=== PATIENT | female | born 1950 ===

== ENCOUNTER 2016-10-15 12:36 | Observation (INO) ==
--- NOTE | 2016-10-15 13:23 | Emergency Department Note ---
Kings Frazier Manpreet, am scribing for, and in the presence of, Quirino Cortés MD 13:14. Moo Frazier Phillip K, MD, personally performed the services described in this documentation, ascribed by Dean Ku in my presence, and it is both accurate and complete 323 . Arrival - Arrival Chief Complaint: Neuro ED Nursing Triage Note: PT TRANSFERRED FROM [facility], PT HAS EPISODE LAST NIGHT OF CONFUSION AND EXPRESSIVE APHASIA, ALL SYMPTOMS HAVE RESOLVED, PT HAS NO COMPLAINTS, GCS 15, SPEECH IS CLEAR Mode of Arrival: Stretcher Limitations: No Limitations Source: Patient Time Seen by Provider: 10/15/16 12:58 - History of Present Illness HPI Narrative: Pt is a 66 y/o female, with PMHx of HTN, IDDM, renal failure, who is transferred to the ED from [facility]. Pt states she woke up on the floor in the middle of night but does not recall how she got there. When she woke up this morning, Pt was late to work and called in. Pt said she was unable to produce words coherently but knew what she wanted to say. Pt also c/o numbness and weakness in her right arm since January. Pt goes for dialysis on MWF but did not go today. No other pains/complaints reported to ED. Onset (ago): day(s) Consistency: now resolved Severity: moderate Allergies/Adverse Reactions: Allergies Allergy/AdvReac Type Severity Reaction Status Date / Time ciprofloxacin [From Cipro] Allergy ITCHING Verified 10/15/16 12:55 Iodinated Contrast Media - Allergy HIVES Verified 10/15/16 12:55 Oral and [Iodinated Contrast Media - IV Dye] sulfamethoxazole Allergy Headache Verified 10/15/16 12:55 [From Bactrim] trimethoprim [From Bactrim] Allergy Headache Verified 10/15/16 12:55 vancomycin AdvReac Mild ITCHING Verified 10/15/16 12:55 Home Medications: Home Medications Medication Instructions Recorded Confirmed Type Insulin NPH Hum/Reg Insulin Hm 40 unit SUBCUT DAILY W/BREAKFAST 10/03/14 History [Novolin 70-30 100 Unit/ml Vial] Insulin NPH Hum/Reg Insulin Hm 30 unit SUBCUT DAILY W/SUPPER 07/28/15 04/12/16 History [NovoLIN 70/30] Calcium Acetate [Phoslo] 2,001 mg PO TID W/MEALS 07/29/15 04/12/16 History Vit B Cmplx 3/Folic AC/C/Biot 1 each PO DAILY 02/01/16 04/12/16 History [Nephro-Fady Rx Tablet] amLODIPine [Norvasc] 10 mg PO DAILY 02/01/16 04/12/16 History Review of System - Review of System 12 point system: reviewed and no additional remarkable complaints except as stated - Review of System Constitutional: Absent: chills, diaphoresis, fever Respiratory: Absent: cough, respiratory distress Cardiovascular: Absent: chest pain Gastrointestinal: Absent: abdominal pain, nausea, vomiting Musculoskeletal: Present: other (Weakness in Right arm). Absent: arm pain, back pain Neurological: Present: numbness (In right arm). Absent: headache Medical,Surgical,& Family Hx - Medical History Cardio: History of: Hypertension, PVD Neurology: History of: Peripheral Neuropathy No history of: Parkinson's Disease, Seizures HEENT: History of: Ear Problem (Hearing Loss Rt Ear), Eye Problem, Dental Problems (missing teeth), HEENT Problems (Allergies) Comment Only: Glaucoma (Glasses) Endocrine: History of: Diabetes Mellitus (IDDM) Respiratory: No history of: Respiratory Problems (Flu Vac Current 3720-5764 Season/No Pneum Vac; SINUS DRAINAGE OCCASIONALLY.) Renal: History of: [place] [place] Renal Failure, Renal Problems (Dr. Lowery) Gastrointestinal: History of: GI Problems (CONSTIPATION OCCASIONAL) Musculoskeletal: History of: Amputation (Lt Great Toe 05/2015), Musculoskeletal Problems (Knee pain) Hematology: History of: Anemia Other: No history of: Anesthesia Reactions, Cancer - Surgical History HEENT Surgeries: Surgical HX of: Eye Surgery (Cataract Rt/Lt) Abdominal Surgeries: Surgical HX of: Appendectomy, Cholecystectomy, Splenectomy Patient denies: Colonoscopy Reproductive Surgeries: Surgical HX of;: Section (x3), Hysterectomy ( 1982) Orthopedic Surgeries: Surgical HX of;: Implanted Devices (left upper arm av fistula. previous declot of av fistula; ligation 02/01/16) - Family History Family History: Reports;: Family Diabetes - Social History Smoking Status: Never smoker Exam Vital Signs: Vital Signs Temperature 98.2 F 10/15/16 12:48 Pulse Rate 88 10/15/16 12:48 Respiratory Rate 18 10/15/16 12:48 Blood Pressure 156/65 10/15/16 12:48 O2 Sat by Pulse Oximetry 100 10/15/16 12:48 - General General appearance: alert, in no apparent distress - Head Head exam: Present: atraumatic, normocephalic, normal inspection - Eye Eye exam: Present: normal appearance, PERRL, EOMI - ENT ENT exam: Present: normal exam, normal oropharynx, mucous membranes moist, TM's normal bilaterally - Neck Neck exam: Present: normal inspection, full ROM, trachea midline - Chest Chest inspection: Present: normal inspection, symmetric chest wall rise - Respiratory Respiratory exam: Present: normal lung sounds bilaterally. Absent: accessory muscle use, respiratory distress - Cardiovascular Cardiovascular exam: Present: regular rate, normal rhythm, normal heart sounds - Abdominal Exam Abdominal exam: Present: soft, normal bowel sounds. Absent: distention, tenderness - Extremities Exam Extremities exam: Present: normal inspection, full ROM. Absent: tenderness - Back Exam Back exam: Present: normal inspection, full ROM. Absent: tenderness - Neurological Exam Neurological exam: Present: alert, oriented X3, CN II-XII intact, reflexes normal - Psychiatric Psychiatric exam: Present: normal affect, normal mood - Skin Skin exam: Present: warm, dry, intact, normal color. Absent: pallor Course Course Narrative: Patient discussed with the hospitalist. Results - Labs Lab Results: I have reviewed the patients labs (Patient left and chart reviewed. ) - EKG EKG results: interpreted by MAYRA, sinus rhythm (EKG at [facility] no ST elevation.) - Diagnostic Findings Procedure: CT: report reviewed by me (CT head scan at [facility] showed no acute intracranial abnormality.) Disposition Clinical Impression: Transient cerebral ischemia, End stage renal disease on dialysis, Hypertension Case discussed with: patient Disposition: Still a Patient Condition: Guarded Additional Instructions: Admit to the hospitalist.
--- NOTE | 2016-10-15 14:03 | Hospitalist History & Physical ---
Assessment and Plan (1) End stage renal disease on dialysis Status: Acute Assessment and plan: Patient reports normal hemodialysis on Saturday, we will consult nephrology to evaluate and schedule hemodialysis as previously indicated. Current Visit: Yes (2) Hypertension Status: Acute Assessment and plan: Blood pressure stable at the time of admission, we will manage and monitor. Current Visit: Yes (3) Transient cerebral ischemia Status: Acute Assessment and plan: At the time of admission, no profound neurological deficits are noted. The patient strength mildly impaired to the right upper extremity. Her speech is clear and appropriate, she is able to recite place time and situation appropriately. We will consult neurology to evaluate. We will order MRI of the brain without contrast to rule out cerebrovascular accident. We will also obtain carotid Dopplers, echo, and thyroid panels. Current Visit: Yes Qualifiers: Transient cerebral ischemia type: unspecified Qualified Code(s): G45.9 - Transient cerebral ischemic attack, unspecified History of Present Illness Chief complaint: Altered mental status History of present illness: This is a very pleasant 66-year-old female that presented to the ED at [facility] this afternoon as a lateral transfer from the [facility] for evaluation of altered mental status and expressive aphasia. The patient has a very complex medical history significant for hypertension, insulin-dependent diabetes mellitus, end-stage renal disease, peripheral neuropathy, anemia, and glaucoma. The patient has a surgical history significant for left great toe amputation (2016), appendectomy, cholecystectomy, splenectomy, section, hysterectomy, left upper arm AV fistula placement, and cataract surgery. The patient reported the onset of presenting symptoms on last night. She reports that she woke up around midnight last night and discovered that she was on the floor. She managed to get herself up to get back into bed; however when she woke up this morning she had difficulty speaking. She reports that she normally goes to work at about 8 AM every day, however she overslept this morning. She was woke up by her nephew who informed her of the time and advised her to contact her employer. She reports that she attempted to make the call however she had issues attempting dialing the number. She managed to make a call however was unable to speak when her employer answered the phone. Her coworkers became concerned and they came to her house to check on her. At the time of her coworkers arrival, she was able to speak at that time. They were very concerned and advised her to report to the [facility] for further evaluation. She presented to the [facility] at the request of her coworkers. She was assessed. She reported numbness and weakness in her right arm, however reported that this is chronic in nature since January of last year. Labs were obtained and essentially benign. CT of the head was performed and was essentially negative for any acute intracranial processes. She was subsequently transferred to [facility] for further evaluation. After brief discussion with Dr. Cortés and Dr. Casas, the patient will be admitted to the hospitalist services for continuation of care. We will consult nephrology and neurology to assist in management during the clinical encounter. Home Medications Medication Instructions Recorded Confirmed Type Insulin NPH Hum/Reg Insulin Hm 40 unit SUBCUT DAILY W/BREAKFAST 10/03/14 History [Novolin 70-30 100 Unit/ml Vial] Insulin NPH Hum/Reg Insulin Hm 30 unit SUBCUT DAILY W/SUPPER 07/28/15 04/12/16 History [NovoLIN 70/30] Calcium Acetate [Phoslo] 2,001 mg PO TID W/MEALS 07/29/15 04/12/16 History Vit B Cmplx 3/Folic AC/C/Biot 1 each PO DAILY 02/01/16 04/12/16 History [Nephro-Fady Rx Tablet] amLODIPine [Norvasc] 10 mg PO DAILY 02/01/16 04/12/16 History Allergies Allergy/AdvReac Type Severity Reaction Status Date / Time ciprofloxacin [From Cipro] Allergy ITCHING Verified 10/15/16 12:55 Iodinated Contrast Media - Allergy HIVES Verified 10/15/16 12:55 Oral and [Iodinated Contrast Media - IV Dye] sulfamethoxazole Allergy Headache Verified 10/15/16 12:55 [From Bactrim] trimethoprim [From Bactrim] Allergy Headache Verified 10/15/16 12:55 vancomycin AdvReac Mild ITCHING Verified 10/15/16 12:55 Medical,Surgical,& Family Hx - Medical History Cardio: History of: Hypertension, PVD Neurology: History of: Peripheral Neuropathy No history of: Parkinson's Disease, Seizures HEENT: History of: Ear Problem (Hearing Loss Rt Ear), Eye Problem, Dental Problems (missing teeth), HEENT Problems (Allergies) Comment Only: Glaucoma (Glasses) Endocrine: History of: Diabetes Mellitus (IDDM) Respiratory: No history of: Respiratory Problems (Flu Vac Current 8594-4487 Season/No Pneum Vac; SINUS DRAINAGE OCCASIONALLY.) Renal: History of: Dialysis ([facility], ), Renal Failure, Renal Problems (Dr. Lowery) Gastrointestinal: History of: GI Problems (CONSTIPATION OCCASIONAL) Musculoskeletal: History of: Amputation (Lt Great Toe 05/2015), Musculoskeletal Problems (Knee pain) Hematology: History of: Anemia Other: No history of: Anesthesia Reactions, Cancer - Surgical History HEENT Surgeries: Surgical HX of: Eye Surgery (Cataract Rt/Lt) Abdominal Surgeries: Surgical HX of: Appendectomy, Cholecystectomy, Splenectomy Patient denies: Colonoscopy Reproductive Surgeries: Surgical HX of;: Section (x3), Hysterectomy ( 1982) Orthopedic Surgeries: Surgical HX of;: Implanted Devices (left upper arm av fistula. previous declot of av fistula; ligation 02/01/16) - Family History Family History: Reports;: Family Diabetes - Social History Smoking Status: Never smoker 12 point system: reviewed and no additional remarkable complaints except as stated Exam - Constitutional Vitals: Period Temp Pulse Resp BP Sys/Kramer Pulse Ox Last 24 Hr 98.2 F 88 18 156/65 100 General appearance: normal weight, no acute distress - Head Head exam: Present: normal inspection, normocephalic, atraumatic - Eye Eye exam: Present: EOMI. Absent: conjunctival injection Pupils: Present: RHEA, normal accommodation - ENT ENT exam: Present: normal exam, normal external ear exam, normal oropharynx - Neck Neck exam: Present: normal inspection. Absent: lymphadenopathy, meningismus, tenderness, thyromegaly - Respiratory Respiratory exam: Present: clear to auscultation bilaterally. Absent: rales, rhonchi, stridor, wheezes - Cardiovascular Cardiovascular exam: Present: regular rate and rhythm, other (Martín catheter noted to left chest wall). Absent: carotid bruit, diastolic murmur, gallop, JVD , rubs, systolic murmur - GI/Abdominal GI/Abdominal exam: Present: normal bowel sounds, soft - Extremities Exam Extremities exam: Present: normal inspection, normal capillary refill, full ROM. Absent: edema - Back Exam Back exam: Present: normal inspection - Neurological Exam Neurological exam: Present: alert, oriented X3, CN II-XII intact, other (No profound neurological defects noted) - Psychiatric Psychiatric exam: Present: normal affect, normal mood - Skin Skin exam: Present: normal color, warm, dry
--- NOTE | 2016-10-15 15:22 | Ultrasound Report ---
US carotid duplex BI Indication: Syncope. CAROTID ULTRASOUND Comparison: None. Findings: Grayscale, color Doppler and pulsed Doppler interrogation of the carotid and vertebral arteries performed. Severity of stenosis based on flow velocity measurements using NASCET criteria. Distal right ICA diameter: 3.6 mm Distal left ICA diameter: 4.6 mm Peak systolic flow velocities in centimeters per second are as follows: Right: CCA: 76 cm/s Proximal ICA: 45 Distal ICA: 91 ICA/CCA ratio: 1.2 Left: CCA: 81 cm/s Proximal ICA: 77 Distal ICA: 99 ICA/CCA ratio: 1.2 External carotid arteries: Both are patent with antegrade flow. Vertebral arteries: Both are patent with antegrade flow. Grayscale and color Doppler images: No significant focal plaque deposition identified, with normal color Doppler flow present. Pulse Doppler waveform interrogation: No significant spectral broadening. Impression: No hemodynamically significant stenosis of either ICA. PROCEDURE INTERPRETED AT [facility] DEPARTMENT OF RADIOLOGY Final Report Signed by: Trey Pace M.D.
--- NOTE | 2016-10-15 16:13 | Magnetic Resonance Report ---
Exam: MR head/brain wo con Date: 10/15/2016 1:49 PM Comparison: None Indication: Alteration of consciousness, syncope, recent episode of expressive aphasia and right-sided weakness Technique:[Multiple acquisitions were obtained including sagittal T1, coronal T2, and axial ADC, diffusion, FLAIR, T2, GRE, and T1 scans without contrast only. Scans were obtained on a 1.5 Sanjuana magnet.] Findings: The ventricles are normal in size with no midline displacement. The pituitary has normal appearance and the cerebellar tonsils are normal in their location. No acute infarction is identified on the diffusion scans. No evidence of hemorrhage, mass, or extracerebral collection. Diffuse atrophy and minimal FLAIR/T2 hyperintensities. Enlarged perivascular spaces are noted which are felt to represent a normal variant. Mucosal thickening/fluid in the paranasal sinuses with retention cysts/polyps. The findings are more pronounced in the left maxillary, right ethmoid, and right sphenoid sinuses. No acute findings in the orbits or [place]. Fluid in the left mastoid air cells. Impression: No acute infarction identified. Atrophy and minimal microvascular disease. Moderate sinusitis with retention cysts/polyps. Nonspecific fluid in left mastoid air cells. PROCEDURE INTERPRETED AT [facility] DEPARTMENT OF RADIOLOGY Final Report Signed by: Dr. Anahi Rockwell
--- NOTE | 2016-10-15 17:46 | ECHO Report ---
Tristian Griffith Exam Date: 10/15/2016 14:52 Referring Physician: Technologist: Johanny Golden Age: 66 Ht (in): 62 Wt (lb): 174 Gender: F Exam Location: [facility] Echo Indications: PVD, CVA, HTN, syncope, chronic renal failure, ESRD BP: 187 / 78 HR: 90 Rhythm: Sinus Technical Quality: Fair IMPRESSIONS 1. Slightly limited study secondary to poor acoustic windows. 2. Left ventricle is normal size systolic function with ejection fraction of 60+%. There is mild to moderate concentric left ventricular hypertrophy. 3. The other cardiac chambers are normal size. 4. There is minimal aortic valve sclerosis and no evidence of Doppler abnormalities. 5. Mild sclerosing of the mitral valve with mild regurgitation. MEASUREMENTS (Male / Female) Normal Values 2D ECHO LV Diastolic Diameter PLAX 4.0 cm 4.2 - 5.9 / 3.9 - 5.3 cm LV Systolic Diameter PLAX 1.7 cm LV Fractional Shortening PLAX 57.6 % IVS Diastolic Thickness 1.6 cm 0.6 - 1.0 / 0.6 - 0.9 cm LVPW Diastolic Thickness 1.4 cm 0.6 - 1.0 / 0.6 - 0.9 cm RV Internal Dim ED PLAX 2.9 cm Aortic Root Diameter 2.7 cm LA Systolic Diameter LX 4.3 cm 3.0 - 4.0 / 2.7 - 3.8 cm DOPPLER TR Peak Velocity 148.0 cm/s TR Peak Gradient 8.8 mmHg FINDINGS Left Ventricle Left ventricle is normal size overall normal systolic function ejection fraction 60+%. There is mild to moderate concentric left ventricular hypertrophy. Right Ventricle Normal right ventricular size and systolic function. Right Atrium Normal right atrial size. Left Atrium Normal left atrial size. Mitral Valve Mild mitral valve sclerosis. Mild mitral valve regurgitation. Aortic Valve Mild aortic valve sclerosis. There is no gross evidence for stenosis or insufficiency. Tricuspid Valve Morphologically normal tricuspid valve. Trace tricuspid valve regurgitation. Pulmonic Valve Morphologically normal pulmonic valve. Pericardium No pericardial effusion. Aorta Normal size aortic root and proximal ascending aorta. Trey Medina MD (Electronically Signed) Final Date: 15 October 2016 17:45
--- NOTE | 2016-10-15 20:40 | Nephrology Consult Note ---
History of Present Illness Chief complaint: End-stage renal disease History of present illness: Ms. Griffith is a 66 year old female history of hypertension diabetes end-stage renal disease dialyzes at the [facility] dialysis unit presented with right arm weakness and aphasia was transferred from [facility] for further evaluation. Concern for her having a CVA she had an MRI done today that did not show acute stroke. At present she is sitting up on side of bed, stating with family by phone voices no complaints. No shortness of breath or chest pain. No nausea vomiting. Patient tolerated dialysis this afternoon. Nephrology is been consulted for renal issues. Home Medications Medication Instructions Recorded Confirmed Type Insulin NPH Hum/Reg Insulin Hm 40 unit SUBCUT DAILY W/BREAKFAST 10/03/14 History [Novolin 70-30 100 Unit/ml Vial] Insulin NPH Hum/Reg Insulin Hm 30 unit SUBCUT DAILY W/SUPPER 07/28/15 10/15/16 History [NovoLIN 70/30] Calcium Acetate [Phoslo] 3 capsule PO TID W/MEALS 07/29/15 10/15/16 History Vit B Cmplx 3/Folic AC/C/Biot 1 each PO DAILY 02/01/16 10/15/16 History [Nephro-Fady Rx Tablet] amLODIPine [Norvasc] 10 mg PO DAILY 02/01/16 10/15/16 History Allergies Allergy/AdvReac Type Severity Reaction Status Date / Time ciprofloxacin [From Cipro] Allergy ITCHING Verified 10/15/16 12:55 Iodinated Contrast Media - Allergy HIVES Verified 10/15/16 12:55 Oral and [Iodinated Contrast Media - IV Dye] sulfamethoxazole Allergy Headache Verified 10/15/16 12:55 [From Bactrim] trimethoprim [From Bactrim] Allergy Headache Verified 10/15/16 12:55 vancomycin AdvReac Mild ITCHING Verified 10/15/16 12:55 Medical,Surgical,& Family Hx - Medical History Cardio: History of: Hypertension, PVD Neurology: History of: Peripheral Neuropathy No history of: Parkinson's Disease, Seizures HEENT: History of: Ear Problem (Hearing Loss Rt Ear), Eye Problem, Dental Problems (missing teeth), HEENT Problems (Allergies) Comment Only: Glaucoma (Glasses) Endocrine: History of: Diabetes Mellitus (IDDM) Respiratory: No history of: Respiratory Problems (Flu Vac Current 2300-6473 Season/No Pneum Vac; SINUS DRAINAGE OCCASIONALLY.) Renal: History of: D[place] [place]), Renal Failure, Renal Problems (Dr. Lowery) Gastrointestinal: History of: GI Problems (CONSTIPATION OCCASIONAL) Musculoskeletal: History of: Amputation (Lt Great Toe 05/2015), Musculoskeletal Problems (Knee pain) Hematology: History of: Anemia Other: No history of: Anesthesia Reactions, Cancer - Surgical History HEENT Surgeries: Surgical HX of: Eye Surgery (Cataract Rt/Lt) Abdominal Surgeries: Surgical HX of: Appendectomy, Cholecystectomy, Splenectomy Patient denies: Colonoscopy Reproductive Surgeries: Surgical HX of;: Section (x3), Hysterectomy ( 1982) Orthopedic Surgeries: Surgical HX of;: Implanted Devices (left upper arm av fistula. previous declot of av fistula; ligation 02/01/16) - Family History Family History: Reports;: Family Diabetes - Social History Smoking Status: Never smoker Frequency of Alcohol Use: None Type of Drug Use: None Review of Systems Constitutional: fatigue, no anorexia, no chills, no fever(s), no increased appetite Nose, mouth and throat: no dysphagia, no epistaxis Cardiovascular: no chest pain at rest, no chest pain with activity, no claudication, no dyspnea, no dyspnea on exertion Respiratory: no cough, no dyspnea Gastrointestinal: no abdominal pain Exam - Vital Signs Vital signs: Period Temp Pulse Resp BP Sys/Kramer Pulse Ox Last 24 Hr 97.8 F-98.2 F 88-91 18-19 139-187/61-78 98-100 - General Appearance General appearance: well-developed, well-nourished, appears started age EENT: ATNC Neck: supple Respiratory: clear Cardiology: no edema, regular rate, regular rhythm Gastrointestinal: normoactive bowel sounds, no tenderness, no guarding Integumentary: no rash Neurologic: alert and oriented x3 Musculoskeletal: no deformities, no clubbing Psychiatric: mood/affect appropriate, cooperative Assessment and Plan (1) Chronic renal failure Status: Chronic Assessment and plan: This patient has end-stage renal disease dialyzes at the [facility] dialysis unit on a Saturday schedule. Current Visit: No Qualifiers: Chronic kidney disease stage: stage 5 Qualified Code(s): N18.5 - Chronic kidney disease, stage 5 (2) Transient cerebral ischemia Status: Acute Assessment and plan: This appears to be resolved. No residual effects. Current Visit: Yes Qualifiers: Transient cerebral ischemia type: unspecified Qualified Code(s): G45.9 - Transient cerebral ischemic attack, unspecified (3) End stage renal disease on dialysis Status: Chronic Assessment and plan: Hemodialysis today. Current Visit: Yes (4) Hypertension Status: Chronic Current Visit: Yes Qualifiers: Hypertension type: essential hypertension Qualified Code(s): I10 - Essential (primary) hypertension
[2016-10-15] MEDS ORDERED: ACETAMINOPHEN 500 MG TABLET PO PRN (23:32)
[2016-10-16 05:05] LABS: Basophils % 0.4 % (0.0-0.8); Eosinophils # 0.2 10*3/uL (0.0-0.87); Eosinophils % 3.9 % (0.00-10.9); Hematocrit 32.7 VOL% (35.7-47.0); Hemoglobin 11.2 GM/DL (12.0-16.0); Immature Granulocytes % 0.4 %; Immature Granulocytes Absolute 0.02 #; Lymphocytes # 1.4 10*3/uL (1.4-4.0); Lymphocytes % 25.7 % (21.3-54.2); Mean Corpuscular HGB Conc 34.3 GM/DL (32-36); Mean Corpuscular Hemoglobin 32 PG (27-34); Mean Corpuscular Volume 93.2 FL (87-102); Mean Platelet Volume 11.5 FL (9.6-12.0); Monocytes # 0.6 10*3/uL (0.11-0.8); Monocytes % 10.8 % (1.7-12.7); Neutrophils # 3.2 10*3/uL (1.4-7.4); Neutrophils % 58.8 % (38.7-73.9); Platelet Count 121 T/CUMM (130-400); Red Blood Count 3.51 MC/CUMM (3.8-5.5); Red Cell Distribution Width 14.3 % (9.3-17.3); White Blood Count 5.4 T/CUMM (4-12)
[2016-10-16 05:45] LABS: Calcium 8.6 MG/DL (8.5-10.1); Osmolality,Calculated 278.8 MOS/KG (273-304)
--- NOTE | 2016-10-16 14:26 | Hospitalist Progress Note ---
Assessment and Plan (1) Transient cerebral ischemia Status: Acute Assessment and plan: 1)TIA- no neuro deficit. Neuro to see. echo, carotids ok. Perhaps she needs MRA of carotids- defer to Neuro. Begin asa, statin. check lipids. 2)ESRD- HD on usual schedule. Current Visit: Yes Qualifiers: Transient cerebral ischemia type: unspecified Qualified Code(s): G45.9 - Transient cerebral ischemic attack, unspecified (2) End stage renal disease on dialysis Status: Chronic Current Visit: Yes (3) Hypertension Status: Chronic Current Visit: Yes Qualifiers: Hypertension type: essential hypertension Qualified Code(s): I10 - Essential (primary) hypertension Hospitalist: Subjective Interval history: Ms Griffith is doing well today. She denies neuro problems. No pain, no shortness of breath. Neuro to see. Echo with EF 60+%, mild-mod LVH. Brain MRI- no acute infarction. moderate sinus disease. Carotid dopplers- no significant stenosis. Exam - Constitutional Vitals: Period Temp Pulse Resp BP Sys/Kramer Pulse Ox Last 24 Hr 96.7 F-97.9 F 84-91 16-20 139-191/61-80 98-99 General appearance: no acute distress, over weight - Head Head exam: Present: normocephalic, atraumatic - Eye Eye exam: Present: EOMI. Absent: scleral icterus - Respiratory Respiratory exam: Present: clear to auscultation bilaterally - Cardiovascular Cardiovascular exam: Present: regular rate and rhythm - GI/Abdominal GI/Abdominal exam: Present: normal bowel sounds, soft. Absent: tenderness - Extremities Exam Extremities exam: Absent: edema Results - Labs CBC & BMP: 10/16/16 04:45 10/16/16 04:45 Lab Results: I have reviewed the past 24 hour labs
[2016-10-16] MEDS ORDERED: DEXTROSE 50% 25 GM/50 ML VIAL IV PRN (14:28)
[2016-10-16] MEDS ORDERED: GLUCAGON 1 MG VIAL IM PRN (14:28)
[2016-10-16 14:58] LABS: Risk Ratio 2.33
[2016-10-16 15:42] VITALS: BP 180/77
[2016-10-16] MEDS ORDERED: INSULIN LISPRO 100 UNIT/ML SUBCUT SCH (16:30)
[2016-10-16] MEDS ORDERED: CALCIUM ACETATE 667 MG CAPSULE PO SCH (17:00)
[2016-10-16] MEDS ORDERED: INSULIN NPH/REGULAR 70/30 100 UNIT/ML SUBCUT SCH (17:00)
--- NOTE | 2016-10-16 17:28 | Neurology Consult Note ---
History of Present Illness History of present illness: 66-year-old lady lady with past medical history significant for for hypertension, insulin-dependent diabetes mellitus, end-stage renal disease, peripheral neuropathy, anemia, and glaucoma. The patient has a surgical history significant for left great toe amputation (2015), appendectomy, cholecystectomy, splenectomy, section, hysterectomy, left upper arm AV fistula placement, and cataract surgery. She came to the hospital after she had an episode where she woke up in the morning of the floor. Patient has some element of slurred speech at that point but that lasted for 30 minutes and then resolved. Patient reported that this has been going on for last couple of years or so. She almost has had 15 episodes in last 2 years. Every single episode characterized by waking up in the morning confused and disoriented and sometimes she would found herself on the floor. Never had any tongue biting or urinary incontinence. No history of stroke, brain trauma etc. No history of childhood brain infection. MRI of the brain is unremarkable for any acute pathology. Echo shows ejection fraction of 60% Home Medications Medication Instructions Recorded Confirmed Type Insulin NPH Hum/Reg Insulin Hm 40 unit SUBCUT DAILY W/BREAKFAST 10/03/14 History [Novolin 70-30 100 Unit/ml Vial] Insulin NPH Hum/Reg Insulin Hm 30 unit SUBCUT DAILY W/SUPPER 07/28/15 10/15/16 History [NovoLIN 70/30] Calcium Acetate [Phoslo] 3 capsule PO TID W/MEALS 07/29/15 10/15/16 History Vit B Cmplx 3/Folic AC/C/Biot 1 each PO DAILY 02/01/16 10/15/16 History [Nephro-Fady Rx Tablet] amLODIPine [Norvasc] 10 mg PO DAILY 02/01/16 10/15/16 History Allergies Allergy/AdvReac Type Severity Reaction Status Date / Time ciprofloxacin [From Cipro] Allergy ITCHING Verified 10/15/16 12:55 Iodinated Contrast Media - Allergy HIVES Verified 10/15/16 12:55 Oral and [Iodinated Contrast Media - IV Dye] sulfamethoxazole Allergy Headache Verified 10/15/16 12:55 [From Bactrim] trimethoprim [From Bactrim] Allergy Headache Verified 10/15/16 12:55 vancomycin AdvReac Mild ITCHING Verified 06/12/17 12:55 12 point system: reviewed and no additional remarkable complaints except as stated Medical,Surgical,& Family Hx - Medical History Cardio: History of: Hypertension, PVD Neurology: History of: Peripheral Neuropathy No history of: Parkinson's Disease, Seizures HEENT: History of: Ear Problem (Hearing Loss Rt Ear), Eye Problem, Dental Problems (missing teeth), HEENT Problems (Allergies) Comment Only: Glaucoma (Glasses) Endocrine: History of: Diabetes Mellitus (IDDM) Respiratory: No history of: Respiratory Problems (Flu Vac Current [id number] Season/No Pneum Vac; SINUS DRAINAGE OCCASIONALLY.) Renal: History of: D[place] [place]), Renal Failure, Renal Problems (Dr. Lowery) Gastrointestinal: History of: GI Problems (CONSTIPATION OCCASIONAL) Musculoskeletal: History of: Amputation (Lt Great Toe 05/2015), Musculoskeletal Problems (Knee pain) Hematology: History of: Anemia Other: No history of: Anesthesia Reactions, Cancer - Surgical History HEENT Surgeries: Surgical HX of: Eye Surgery (Cataract Rt/Lt) Abdominal Surgeries: Surgical HX of: Appendectomy, Cholecystectomy, Splenectomy Patient denies: Colonoscopy Reproductive Surgeries: Surgical HX of;: Section (x3), Hysterectomy ( 1982) Orthopedic Surgeries: Surgical HX of;: Implanted Devices (left upper arm av fistula. previous declot of av fistula; ligation 02/01/16) - Family History Family History: Reports;: Family Diabetes - Social History Smoking Status: Never smoker Frequency of Alcohol Use: None Type of Drug Use: None Exam - Constitutional Vitals: Period Temp Pulse Resp BP Sys/Kramer Pulse Ox Last 24 Hr 96.7 F-97.8 F 84-100 16-20 139-191/61-80 98-99 Exam: GENERAL: Patient is in no acute distress. NECK: Neck is supple. There is no JVD. No carotid bruits present. No thyroid masses. CVS: First and second heart sounds are normal. There is no S3 present. Regular rate and rhythm. RESPIRATORY: Lungs are clear to auscultation without any rales or rhonchi. ABDOMEN: Soft and non-tender. Bowel sounds are present. There is no hepatosplenomegaly. EXT: There is no palpable edema. Peripheral pulses are present. Skin: No rashes Central Nervous system: General: Alert, awake and Oriented x 3 Speech: Fluent Comprehension: Intact and normal Facial expressions: Normal Cranial Nerves: CN1/Olfactory: Normal CN II/ Optic: Normal, Visual Smith unreliable CN III, and : RHEA & EOMI CN V: Normal & intact CN VII: face is symmetric CNVIII: Normal CN XI/X/XI/XII: Intact and Normal Motor: Bulk and Tone is normal. Strength in the right 5/5 Strength in the left 5/5 Sensory: Decreased for all the modalities of PP, LT and temp sense Reflexes: 1+ and symmetrical Cerebellar function: Normal finger to nose and heel to burnham testing. Toes: Equivocal Gait: Slightly broad-based gait Results - Labs CBC & BMP: 10/16/16 04:45 10/16/16 04:45 Assessment and Plan (1) Seizure disorder Status: Acute Assessment and plan: History is suggestive of seizures. This is not TIAs or vascular events. Start Keppra 500 mg p.o. twice daily EEG as an outpatient Long-term video monitoring as an outpatient Okay to go home from neuro standpoint Follow-up in 2 week Current Visit: Yes Specialty Discharge - Follow Up or Referrals Follow up with: Faisal Bernal MD [Physician] - 2 Weeks
--- NOTE | 2016-10-16 17:52 | Discharge Summary ---
Hospital Course - Hospital Course Hospital Course: Mrs Esqueda presented with an episode of confusion and being on the floor that resolved byt the time she was here. She was admited to rule out stroke and see the neurologist. Her MRI looked ok without acute stroke and her carotids had no significant disease on US. She was seen by Dr Bernal who obtained more history of these spells happening 15 times in [facility] last 2 years. He is suspicious of seizures and has recommended Keppra and outpatient EEG and video monitoring. She will be discharged today to follow up with him and [facility] P[facility]. - Time spent with patient Time with patient DS: Greater than 30 minutes (chart review, exam, medicine reconciliation, documentation) Diagnosis - Discharge Diagnosis (1) Transient cerebral ischemia Status: Ruled-out (2) End stage renal disease on dialysis Status: Chronic (3) Hypertension Status: Chronic (4) Seizure disorder Status: Acute Specialty Discharge - Follow Up or Referrals Follow up with: [facility] [Provider Group] - 1 Week Faisal Bernal MD [Physician] - 2 Weeks Your, kidney doctor [Other] (1 week uncontrolled HTN) Discharge Plan - Discharge Data Disposition: Disch To Home/Self Care Condition at Discharge: Stable Discharge Diet: heart healthy Activity: resume usual activities as tolerated, other (outpatient EEG and video monitoring) - Discharge Medications New Hydralazine HCl 50 mg PO BID #60 tablet levETIRAcetam [Keppra] 500 mg PO BID #60 tablet Aspirin Chew Tab 81 mg PO DAILY tablet Continue Insulin NPH Hum/Reg Insulin Hm [NovoLIN 70/30] 40 unit SUBCUT DAILY W/ BREAKFAST Insulin NPH Hum/Reg Insulin Hm [NovoLIN 70/30] 30 unit SUBCUT DAILY W/SUPPER Calcium Acetate [Phoslo] 3 capsule PO TID W/MEALS Vit B Cmplx 3/Folic AC/C/Biot [Nephro-Fady Rx Tablet] 1 each PO DAILY amLODIPine [Norvasc] 10 mg PO DAILY - Follow Up or Referral Follow Up: Faisal Bernal MD [Physician] - 2 Weeks - Forms/Instructions Additional Discharge Instructions: outpatient EEG, video monitoring per DR Bernal Exam - Constitutional Vitals: Period Temp Pulse Resp BP Sys/Kramer Pulse Ox Last 24 Hr 96.7 F-97.8 F 84-100 16-20 139-191/61-80 98-99 General appearance: no acute distress, over weight - Head Head exam: Present: normocephalic, atraumatic - Eye Eye exam: Present: EOMI. Absent: scleral icterus - Respiratory Respiratory exam: Present: clear to auscultation bilaterally - Cardiovascular Cardiovascular exam: Present: regular rate and rhythm - GI/Abdominal GI/Abdominal exam: Present: normal bowel sounds, soft. Absent: tenderness - Extremities Exam Extremities exam: Absent: edema Discharge Results Procedures and tests throughout hospitalization: Pending Orders 10/15/16 14:47 Thyroid Function Lengby, S Stat Labs on day of discharge: Labs from last 24 hours 10/16/16 10/16/16 10/16/16 17:27 04:45 04:45 WBC RBC Hgb Hct MCV MCH MCHC RDW Plt Count MPV Neut % (Auto) Lymph % (Auto) Hutchinson % (Auto) Eos % (Auto) Baso % (Auto) Neut # (Auto) Lymph # (Auto) [place]inson # (Auto) Eos # (Auto) Baso # (Auto) Immature Gran % Nucleated RBC % Immature Gran # Nucleated RBCs # Sodium 137 Potassium 4.0 Chloride 99 Carbon Dioxide 28 Anion Gap 14.0 BUN 30 H Creatinine 5.40 H GFR Calculation 8 BUN/Creatinine Ratio 5.00 L Glucose 106 POC Glucose 221 H Calculated Osmolality 278.8 Calcium 8.6 Triglycerides 95 Cholesterol 142 LDL Cholesterol 71.0 VLDL Cholesterol 19.0 HDL Cholesterol 61 H Heart Disease Risk Ratio 2.33 10/16/16 04:45 WBC 5.4 RBC 3.51 L Hgb 11.2 L Hct 32.7 L MCV 93.2 MCH 32 MCHC 34.3 RDW 14.3 Plt Count 121 L MPV 11.5 Neut % (Auto) 58.8 Lymph % (Auto) 25.7 Hutchinson % (Auto) 10.8 Eos % (Auto) 3.9 Baso % (Auto) 0.4 Neut # (Auto) 3.2 Lymph # (Auto) 1.4 Hutchinson # (Auto) 0.6 Eos # (Auto) 0.2 Baso # (Auto) 0.0 Immature Gran % 0.4 Nucleated RBC % 0.0 Immature Gran # 0.02 Nucleated RBCs # 0.00 Sodium Potassium Chloride Carbon Dioxide Anion Gap BUN Creatinine GFR Calculation BUN/Creatinine Ratio Glucose POC Glucose Calculated Osmolality Calcium Triglycerides Cholesterol LDL Cholesterol VLDL Cholesterol HDL Cholesterol Heart Disease Risk Ratio DS: Provider Date of admission: 10/15/16 13:12 Primary care physician: Sonido Mosquera MD Attending physician on admission: Pamella Chávez MD Consults: 10/15/16 13:46 Consult to Physician [CONS] Routine Comment: Consulting Provider: Faisal Bernal Consulting Provider Notified: Yes When should Consulting Provider be notified: Now Person Notified: Sheela Date Notified: 10/15/16 Time Notified: 14:26 10/15/16 14:26 Consult to Physician [CONS] Routine Comment: Consulting Provider: Palomo Lowery Jr. When should Consulting Provider be notified: Now Person Notified: Omari Date Notified: 10/15/16 Time Notified: 02:35 10/15/16 14:47 Consult to Occupational Therapy [CONS] Routine Reason for Occupational Therapy: Evaluate and Treat PT [Consult to Physical Therapy] [CONS] Routine Reason for Physical Therapy: Evaluate and Treat Discharging clinician: Xiomy Javed MD
[2016-10-17] MEDS ORDERED: INSULIN NPH/REGULAR 70/30 100 UNIT/ML SUBCUT SCH (08:00)
[2016-10-17] MEDS ORDERED: ASPIRIN CHEW 81 MG TABLET PO SCH (09:00)
[2016-10-17] MEDS ORDERED: ATORVASTATIN 20 MG TABLET PO SCH (09:00)
[2016-10-17] MEDS ORDERED: MULTIVITAMIN (BEROCCA) TABLET PO SCH (09:00)
[2016-10-17] MEDS ORDERED: amLODIPine 10 MG TABLET PO SCH (09:00)
== END 2016-10-16 18:54 | disposition home or self-care (01) ==
LOC: EDUNIT# → EDBD → N.EDINP 12:36 → N.ED 12:36 → SUATTDRO 13:12 → N.TELES 13:34
PROVIDERS: ADMIT Internal Medicine; ATTEND Internal Medicine

== ENCOUNTER 2017-10-02 09:58 | Inpatient (IN) ==
[2017-10-02] MEDS ORDERED: ACETAMINOPHEN 325 MG TABLET PO PRN (15:59)
[2017-10-02] MEDS ORDERED: GLUCAGON 1 MG VIAL IM PRN (15:59)
[2017-10-02] MEDS ORDERED: DEXTROSE 50% 25 GM/50 ML VIAL IV PRN (15:59)
[2017-10-02] MEDS: cefTRIAXone 1,000 MG in SYRINGE 1 EACH IV SCH (16:42)
[2017-10-02] MEDS: INSULIN REGULAR 100 UNIT/ML SUBCUT SCH ×2 (17:16→21:47)
[2017-10-02] MEDS: CALCIUM ACETATE 667 MG CAPSULE PO SCH (17:16)
[2017-10-02] MEDS: INSULIN NPH/REGULAR 70/30 100 UNIT/ML SUBCUT SCH (17:16)
[2017-10-02] MEDS: levETIRAcetam 500 MG TABLET PO SCH (21:45)
[2017-10-02] MEDS: DOCUSATE SODIUM 100 MG CAPSULE PO SCH (21:45)
[2017-10-03 05:25] LABS: Basophils % 0.2 % (0.0-0.8); Eosinophils % 0.2 % (0.00-10.9); Hematocrit 30.1 VOL% (35.7-47.0); Hemoglobin 10.1 GM/DL (12.0-16.0); Immature Granulocytes % 2.3 %; Immature Granulocytes Absolute 0.39 #; Lymphocytes # 1.4 10*3/uL (1.4-4.0); Mean Corpuscular HGB Conc 33.6 GM/DL (32-36); Mean Corpuscular Hemoglobin 32 PG (27-34); Mean Corpuscular Volume 95.6 FL (87-102); Mean Platelet Volume 13.8 FL (9.6-12.0); Monocytes # 1.4 10*3/uL (0.11-0.8); Monocytes % 8.1 % (1.7-12.7); Neutrophils # 13.9 10*3/uL (1.4-7.4); Neutrophils % 81.2 % (38.7-73.9); Red Blood Count 3.15 MC/CUMM (3.8-5.5); Red Cell Distribution Width 13.5 % (9.3-17.3); White Blood Count 17.1 T/CUMM (4-12)
[2017-10-03 05:59] LABS: Platelet Count 83 T/CUMM (130-400)
[2017-10-03 06:14] LABS: Band Neutrophils 5 % (0-10); Lymphocytes 8 % (20-55); Segmented Neutrophils 83 % (50-85); Total Cells Counted 100
[2017-10-03 06:15] LABS: Macrocytosis 1+; Platelet Estimate Decreased
[2017-10-03] MEDS: INSULIN NPH/REGULAR 70/30 100 UNIT/ML SUBCUT SCH ×2 (07:50→16:45)
[2017-10-03] MEDS: CALCIUM ACETATE 667 MG CAPSULE PO SCH ×3 (07:50→16:41)
[2017-10-03] MEDS: INSULIN REGULAR 100 UNIT/ML SUBCUT SCH ×4 (07:50→21:14)
[2017-10-03 08:28] LABS: Calcium 8.9 MG/DL (8.5-10.1); Osmolality,Calculated 274.8 MOS/KG (273-304); Potassium 4.1 MMOL/L (3.5-5.1)
[2017-10-03] MEDS: amLODIPine 10 MG TABLET PO SCH (08:48)
[2017-10-03] MEDS: levETIRAcetam 500 MG TABLET PO SCH ×2 (08:48→21:15)
[2017-10-03] MEDS: PANTOPRAZOLE 40 MG TABLET PO SCH (08:48)
[2017-10-03] MEDS: DOCUSATE SODIUM 100 MG CAPSULE PO SCH ×2 (08:49→21:15)
[2017-10-03] MEDS ORDERED: HEPARIN 5,000 UNIT/1 ML VIAL ONE (13:01)
[2017-10-03] MEDS ORDERED: BUPIVACAINE MPF 0.25% /EPI 30 ML VIAL ONE (13:01)
[2017-10-03] MEDS ORDERED: LIDOCAINE 1%/EPI INJ 20 ML VIAL ONE (13:02)
[2017-10-03] MEDS: SODIUM CHLORIDE 0.9% 250 ML IV SCH (13:19)
[2017-10-03] MEDS ORDERED: SODIUM CHLORIDE 0.9% 100 ML IV ONE (14:39)
[2017-10-03] MEDS ORDERED: PROPOFOL 200 MG/20 ML VIAL IV ONE (14:39)
[2017-10-03] MEDS ORDERED: KETAMINE 500 MG/10 ML VIAL ONE (14:39)
[2017-10-03] MEDS ORDERED: GLUCAGON 1 MG VIAL IM PRN (15:29)
[2017-10-03] MEDS ORDERED: DEXTROSE 50% 25 GM/50 ML VIAL IV PRN (15:29)
[2017-10-03 15:38] LABS: Partial Thromboplastin Time 31.2 SECS (0-40)
[2017-10-03] MEDS: cefTRIAXone 1,000 MG in SYRINGE 1 EACH IV SCH (16:41)
[2017-10-03] MEDS: MORPHINE 4 MG/1 ML VIAL IV PRN (22:41)
[2017-10-04] MEDS: SODIUM CHLORIDE 0.9% 250 ML IV SCH ×2 (01:50→16:00)
[2017-10-04] MEDS: levETIRAcetam 500 MG TABLET PO SCH ×2 (07:23→21:44)
[2017-10-04] MEDS: CALCIUM ACETATE 667 MG CAPSULE PO SCH ×3 (07:23→17:09)
[2017-10-04] MEDS: INSULIN REGULAR 100 UNIT/ML SUBCUT SCH ×4 (07:33→21:46)
[2017-10-04] MEDS: DOCUSATE SODIUM 100 MG CAPSULE PO SCH ×2 (09:42→21:44)
[2017-10-04] MEDS: INSULIN NPH/REGULAR 70/30 100 UNIT/ML SUBCUT SCH ×2 (09:43→17:10)
[2017-10-04] MEDS: PANTOPRAZOLE 40 MG TABLET PO SCH (09:44)
[2017-10-04] MEDS: amLODIPine 10 MG TABLET PO SCH (09:45)
[2017-10-04] MEDS ORDERED: HEPARIN 10,000 UNIT/10 ML VIAL IV SCH (11:30)
[2017-10-04] MEDS: CLINDAMYCIN INJ 600 MG in PREMIX 1 EACH IV SCH ×2 (14:03→17:11)
[2017-10-05] MEDS: CLINDAMYCIN INJ 600 MG in PREMIX 1 EACH IV SCH ×5 (01:22→23:40)
[2017-10-05] MEDS: SODIUM CHLORIDE 0.9% 250 ML IV SCH (04:28)
[2017-10-05 05:55] LABS: Basophils % 0.2 % (0.0-0.8); Eosinophils # 0.1 10*3/uL (0.0-0.87); Eosinophils % 0.7 % (0.00-10.9); Immature Granulocytes % 0.8 %; Lymphocytes # 1.2 10*3/uL (1.4-4.0); Lymphocytes % 9.2 % (21.3-54.2); Mean Corpuscular HGB Conc 33.3 GM/DL (32-36); Mean Corpuscular Hemoglobin 32 PG (27-34); Mean Corpuscular Volume 95.4 FL (87-102); Mean Platelet Volume 12.5 FL (9.6-12.0); Monocytes # 1.5 10*3/uL (0.11-0.8); Monocytes % 11.1 % (1.7-12.7); Neutrophils # 10.4 10*3/uL (1.4-7.4); Red Blood Count 2.83 MC/CUMM (3.8-5.5); Red Cell Distribution Width 13.3 % (9.3-17.3); White Blood Count 13.3 T/CUMM (4-12)
[2017-10-05 06:03] LABS: Platelet Count 98 T/CUMM (130-400)
[2017-10-05 06:16] LABS: Calcium 9.1 MG/DL (8.5-10.1); Osmolality,Calculated 271.4 MOS/KG (273-304); Potassium 3.5 MMOL/L (3.5-5.1)
[2017-10-05 06:19] LABS: Hypochromasia 1+; Macrocytosis 1+; Target Cells Slight
[2017-10-05] MEDS: INSULIN REGULAR 100 UNIT/ML SUBCUT SCH ×4 (07:12→21:12)
[2017-10-05] MEDS: PANTOPRAZOLE 40 MG TABLET PO SCH (08:36)
[2017-10-05] MEDS: levETIRAcetam 500 MG TABLET PO SCH ×2 (08:36→21:12)
[2017-10-05] MEDS: INSULIN NPH/REGULAR 70/30 100 UNIT/ML SUBCUT SCH ×2 (08:36→17:46)
[2017-10-05] MEDS: amLODIPine 10 MG TABLET PO SCH (08:36)
[2017-10-05] MEDS: CALCIUM ACETATE 667 MG CAPSULE PO SCH ×3 (08:36→17:45)
[2017-10-05] MEDS: DOCUSATE SODIUM 100 MG CAPSULE PO SCH ×2 (08:36→21:12)
[2017-10-05] MEDS: ONDANSETRON 4 MG/2 ML VIAL IV PRN (17:50)
[2017-10-06] MEDS: CLINDAMYCIN INJ 600 MG in PREMIX 1 EACH IV SCH ×4 (05:38→23:47)
[2017-10-06 06:01] LABS: Basophils % 0.2 % (0.0-0.8); Eosinophils # 0.1 10*3/uL (0.0-0.87); Eosinophils % 1.2 % (0.00-10.9); Hematocrit 29.1 VOL% (35.7-47.0); Hemoglobin 9.6 GM/DL (12.0-16.0); Immature Granulocytes Absolute 0.11 #; Lymphocytes # 1.7 10*3/uL (1.4-4.0); Lymphocytes % 14.8 % (21.3-54.2); Mean Corpuscular Hemoglobin 32 PG (27-34); Mean Platelet Volume 12.7 FL (9.6-12.0); Monocytes # 1.7 10*3/uL (0.11-0.8); Monocytes % 15.5 % (1.7-12.7); Neutrophils # 7.6 10*3/uL (1.4-7.4); Neutrophils % 67.3 % (38.7-73.9); Platelet Count 117 T/CUMM (130-400); Red Blood Count 3.03 MC/CUMM (3.8-5.5); Red Cell Distribution Width 13.6 % (9.3-17.3); White Blood Count 11.2 T/CUMM (4-12)
[2017-10-06 06:31] LABS: Calcium 9.9 MG/DL (8.5-10.1); Osmolality,Calculated 272.8 MOS/KG (273-304); Potassium 3.6 MMOL/L (3.5-5.1)
[2017-10-06] MEDS: CALCIUM ACETATE 667 MG CAPSULE PO SCH ×3 (08:40→17:20)
[2017-10-06] MEDS: INSULIN NPH/REGULAR 70/30 100 UNIT/ML SUBCUT SCH ×2 (08:41→17:18)
[2017-10-06] MEDS: DOCUSATE SODIUM 100 MG CAPSULE PO SCH ×2 (08:42→20:39)
[2017-10-06] MEDS: INSULIN REGULAR 100 UNIT/ML SUBCUT SCH ×4 (08:42→20:39)
[2017-10-06] MEDS: PANTOPRAZOLE 40 MG TABLET PO SCH (08:42)
[2017-10-06] MEDS: levETIRAcetam 500 MG TABLET PO SCH ×2 (08:42→20:38)
[2017-10-06] MEDS: amLODIPine 10 MG TABLET PO SCH (08:42)
[2017-10-06] MEDS ORDERED: tiZANidine 4 MG TABLET PO PRN (08:43)
[2017-10-06] MEDS: POLYETHYLENE GLYCOL POWDER 17 GM PACK PO SCH (09:01)
[2017-10-07] MEDS: CLINDAMYCIN INJ 600 MG in PREMIX 1 EACH IV SCH (05:35)
[2017-10-07] MEDS: CALCIUM ACETATE 667 MG CAPSULE PO SCH ×3 (09:31→16:22)
[2017-10-07] MEDS: INSULIN NPH/REGULAR 70/30 100 UNIT/ML SUBCUT SCH ×2 (09:31→16:23)
[2017-10-07] MEDS: INSULIN REGULAR 100 UNIT/ML SUBCUT SCH ×4 (09:31→21:20)
[2017-10-07] MEDS: POLYETHYLENE GLYCOL POWDER 17 GM PACK PO SCH (09:31)
[2017-10-07] MEDS: amLODIPine 10 MG TABLET PO SCH (09:32)
[2017-10-07] MEDS: PANTOPRAZOLE 40 MG TABLET PO SCH (09:32)
[2017-10-07] MEDS: levETIRAcetam 500 MG TABLET PO SCH ×2 (09:32→21:19)
[2017-10-07] MEDS: DOCUSATE SODIUM 100 MG CAPSULE PO SCH ×2 (09:32→21:19)
[2017-10-07] MEDS: MORPHINE 4 MG/1 ML VIAL IV PRN (11:59)
[2017-10-07] MEDS: LACTULOSE 20 GM/30 ML UDCUP PO PRN ×2 (18:10→21:19)
[2017-10-07] MEDS: ONDANSETRON 4 MG/2 ML VIAL IV PRN (22:11)
[2017-10-08] MEDS: amLODIPine 10 MG TABLET PO SCH (09:33)
[2017-10-08] MEDS: CALCIUM ACETATE 667 MG CAPSULE PO SCH ×2 (09:33→12:32)
[2017-10-08] MEDS: PANTOPRAZOLE 40 MG TABLET PO SCH (09:33)
[2017-10-08] MEDS: levETIRAcetam 500 MG TABLET PO SCH (09:34)
[2017-10-08] MEDS: INSULIN NPH/REGULAR 70/30 100 UNIT/ML SUBCUT SCH (09:34)
[2017-10-08] MEDS: INSULIN REGULAR 100 UNIT/ML SUBCUT SCH ×2 (09:34→12:32)
[2017-10-08] MEDS: POLYETHYLENE GLYCOL POWDER 17 GM PACK PO SCH (09:35)
[2017-10-08] MEDS: DOCUSATE SODIUM 100 MG CAPSULE PO SCH (09:35)
[2017-10-08 12:24] VITALS: BP 113/50
== END 2017-10-08 13:45 | disposition home or self-care (01) | DRG 314 ==
LOC: SUATTDRO 15:26 → N.TELEN 15:26
PROVIDERS: ADMIT Family Medicine